=== PATIENT | female | born 1940 | race Caucasian/White ===

== ENCOUNTER 2025-09-24 00:56 | Emergency (ER) | payer MEDICARE, BC, SELFPAY ==
[2025-09-24 01:01] VITALS: BP 182/92
[2025-09-24 01:10] VITALS: BMI 26.8
--- NOTE | 2025-09-24 01:11 | ED.GENMED ---
History of Present Illness
General
Chief Complaint: Numbness
Source: patient
Exam Limitations: none
Time Seen by Provider: 09/24/25 01:01
Nursing documentation reviewed up to this point in time: agreed with except (Pain is in the left arm-triage note says right)
History of Present Illness
History of Present Illness:
84-year-old female with a past medical history as noted presents for evaluation of left arm pain. Patient reports symptoms have been constant all day and unremitting. She describes a dull aching in the left arm radiating down with more of a
burning sensation in the left hand. No clear triggering or relieving factors noted. She denies any trauma to the arm or hand. 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
not typical for her which prompted her to come to the ER this evening. Aside from arm pain she denies other symptoms including chest pain, shortness of breath, weakness or numbness in the arms or legs, neck pain or headache or any other acute
complaints.
Past History
Past History
ED Past Medical History: Arrthythmia, HTN, Valvular disease and Hypothyroidism
Social History
Tobacco: Non-smoker
Alcohol: None
Review of Systems
Review of Systems
All Other Systems: ROS reviewed and negative except as documented in HPI and ROS
Constitutional: Denies fever
Respiratory: Denies cough or trouble breathing
Cardiac: Denies chest pain
ABD/GI: Denies abdominal pain
: Denies flank pain
Musculoskeletal: Reports muscle pain (Left arm pain); Denies neck pain or back pain
Neurological: Denies dizzy, headache, weakness or numbness
Phy Exam
Physical Exam
Physical Exam:
General: Awake, alert, oriented x3 and very pleasant; no acute distress
Head: Normocephalic, atraumatic
Eyes: Conjunctiva normal, EOMI
Throat: Airway intact, handling secretions
Neck: Trachea midline, supple without meningismus, no cervical spine tender
Lungs: Clear to auscultation bilaterally, no wheezing, rales, rhonchi
Heart: Regular rate and rhythm, no murmurs, gallops, or rubs; pacemaker noted
Abd: Soft, non distended, nontender
Neuro: Cranial nerves grossly intact, speech fluid, motor and sensory gross intact
Skin: no rash in area of concern
Extremities: Patient does have left upper extremity edema +1, no edema in the right upper extremity or in the lower extremities; she has no point tenderness in the left arm, no rash, no erythema or warmth; she has a bounding left radial pulse and
the hand is warm and well-perfused
Scores
Heart Failure Risk
Heart Failure Risk Score: Not Applicable
Heart Score for Chest Pain Patients
STEMI patient?: Not applicable
Withdrawal Assessment of Alcohol
Withdrawal Assessment Completed?: Not applicable
Course
Orders/Labs/Results
Orders:
Orders
09/24/25 01:10
Electrocardiogram (*1) Urgent
Reason for Study: Chest Pain
EKG- Treatment ONCE
Interrogate Pacemaker- Treatment ONCE
Acetaminophen [Tylenol] 1,000 mg PO NOW STA
Gabapentin [Neurontin] 100 mg PO NOW STA
US Periph Venous UPPER Ext LT Urgent
Comment:
Reason For Exam: LUE pain and swelling
09/24/25 01:15
Complete Blood Count/With Diff Urgent
Comprehensive Metabolic Panel Urgent
Magnesium Urgent
Troponin I Urgent
09/24/25 02:33
Dexamethasone Sod Phosphate [Decadron] 10 mg IV NOW STA
09/24/25 02:40
Electrocardiogram (*1) Urgent
Reason for Study: Chest Pain
EKG- Treatment ONCE
09/24/25 03:01
Troponin I Urgent
09/24/25 04:00
Capsaicin [Zostrix-Hp 0.075% Cream] See Dose Instructions TOPICAL ONCE ONE
09/24/25 04:07
CT Angio Upper Ext W/Wo Iv Contrast [CT Upper Ext Angio W/wo Iv Con] Urgent
Comment:
Reason For Exam: severe left arm pain
09/24/25 04:08
Morphine Sulfate 4 mg IV NOW STA
Abnormal Lab Results
09/24/25
01:15
RBC 3.84 L 10^6/uL
(4.20-5.40)
Hgb 11.5 L g/dL
(12.0-16.0)
Hct 34.5 L %
(37.0-47.0)
Absolute Lymphs (auto) 0.9 L 10^3/uL
(1.2-3.4)
Absolute Monos (auto) 0.8 H 10^3/uL
(0.1-0.6)
Lymphocytes % 17.4 L %
(20.5-51.1)
Monocytes % 15.6 H %
(1.7-9.3)
BUN 19 H mg/dl
(7-17)
Glucose 100 H mg/dl
(70-99)
09/24/25 01:15
09/24/25 01:15
Vital Signs
Initial and Last Documented VS:
Initial Vital Signs
Temp Pulse Resp BP Pulse Ox
36.6 C 100 30 182/92 99
09/24/25 01:01 09/24/25 01:01 09/24/25 01:01 09/24/25 01:01 09/24/25 01:01
Last Documented Vital Signs
Temp Pulse Resp BP Pulse Ox
36.3 C 78 16 178/87 96
09/24/25 01:10 09/24/25 05:15 09/24/25 05:15 09/24/25 04:00 09/24/25 05:15
MDM/Problems Addressed
Differential Diagnosis Includes:
Radiculopathy/neuropathic pain, DVT, anginal equivalent; nothing to suggest claudication, early shingles
MDM/Problems Addressed:
84-year-old female presents with left arm pain�she has chronic swelling in the left upper extremity after DVT that was apparently stented; she is on Eliquis and compliant. Today has had pain in the arm all day which is unusual for her. She
describes an aching in the upper arm with more burning sensation in the distal arm/hand. No chest pain or any other acute complaints. Vitals and exam are as above. Plan to check basic labs, EKG and troponin. Will check ultrasound to rule out
DVT. She has a bounding pulse in the arm, extremity is warm and well-perfused�nothing to suggest claudication symptoms. Treat symptomatically, monitor closely, reassess after the above.
Initial labs reviewed: CBC shows marginal anemia, CMP no clinically significant abnormalities. Troponin negative x 1 will repeat for completeness. Ultrasound is negative for DVT in the arm. Continue to monitor here.
Repeat troponin negative. Patient continues to complain of severe pain in the arm. She was given medications here without improvement can trial some capsaicin cream as she describes what sound like neuropathic pain.
Patient continues to complain of severe pain�will check CT angio to rule out any arterial occlusion at this point.
CT angio shows no arterial occlusion or other acute pathology�at this point symptoms seem to be likely neuropathic pain either from pinched nerve, early shingles would be a consideration as well although no rash noted today. Her pain is a bit
better controlled here after receiving some morphine. Had a long discussion with the patient no clear indication for hospital admission pain is better controlled. I think it would be reasonable to trial a course of steroids and Neurontin and have
her follow-up with her primary provider and she feels very comfortable with this plan. All questions answered.
Acute Exacerbation and/or Progression of Chronic Illness:
Acutely hypertensive likely pain related�will treat pain but no emergent antihypertensives indicated at this point
Acute Exacerbation and/or Progression of Chronic Illness: HTN
*Radiology
Radiology exam reviewed: radiology read reviewed
*Pulse Oximetry
SaO2: 98
Oxygen Mode of Delivery: Room air
Patient hypoxic: no (98%)
*EKG
Interpreted by ED Provider?: Yes
Heart Rate: 73
Rate: normal
Rhythm: ventricular paced (Atrial sensed ventricular paced)
*Critical Care Note
Total Time (30-74mins, 75-104mins- exclusive of procedures): Not Applicable
Data Reviewed
Source: patient, records and ambulance crew
ED Attending Note
-
Portions of this chart may have been created with voice recognition software.� Occasional wrong word or��sound alike� substitutions may have occurred due to the inherent limitations of voice recognition software.
Discharge Plan
Departure
Patient Disposition: Home (Routine Discharge)
Date of Disposition: 09/24/25
Time of Disposition: 05:22
Patient with high blood pressure during this ER visit?: Yes
Discharge Problem:
Left arm pain
Instructions: Peripheral neuropathy
Prescriptions:
New
prednisone 10 mg Tablet
See Rx Instructions .ROUTE .COMPLEX Qty: 30 0RF
Rx Instructions:
Take By Mouth:
40 mg daily x3 days, 30 mg daily x3 days,
20 mg daily x3 days, 10 mg daily x3 days.
gabapentin 100 mg capsule
100 mg PO TID Qty: 30 0RF
No Action
Eliquis:
2.5 mg PO BID
Levothyroxine
100 mcg PO DAILY
aspirin 81 MG tablet,delayed release (DR/EC)
81 mg PO DAILY
carvedilol 3.125 MG tablet
3.125 mg PO BID
lisinopril 2.5 MG tablet
2.5 mg PO DAILY
furosemide 20 MG tablet
20 mg PO PRN PRN (Reason: .as directed )
Referrals:
Mariajose Hernandez DO [Family Provider, Family Practice] - Follow up in 5-7 days
Activity Restrictions/Additional Instructions:
Thank you for visiting the Emergency Department at [facility].
1. Please schedule a follow up appointment as directed. Call first thing tomorrow morning to make an appointment.
2. If indicated, please take your medications as instructed and indicated on discharge paperwork.
3. If any of your symptoms do not improve, or persist, or become more severe within 6-12 hours, please return to the emergency department for further care.
4. Please return to the emergency department if you develop a headache, neck pain/stiffness, fever greater than 100.4F, chest pain, shortness of breath, persistent nausea, vomiting, slurred speech, difficulty walking, numbness/tingling, weakness,
signs of infection or any other symptoms that are worrisome to you.
Please call [phone] if you have any questions.
Interventions
Interventions:
*Risk Screen - Suicide Last Done: 09/24/25 01:01
*General Assessment Last Done: 09/24/25 01:01
*Neglect/Abuse Screening Last Done: 09/24/25 01:01
*ED COVID-19 Vaccine History Last Done: 09/24/25 01:01
*ED Influenza Vaccine History Last Done: 09/24/25 01:01
[facility] Fall Risk Assessment Tool Last Done: 09/24/25 01:10
ED- Neurological Assessment Last Done: 09/24/25 01:01
Discharge Date and Time
Print Language: CITIZEN [place]
[2025-09-24] MEDS: NEURONTIN 100 MG PO (01:22)
[2025-09-24] MEDS: TYLENOL 1000 MG PO (01:22)
[2025-09-24 01:47] LABS: Hematocrit 34.5 % (37.0-47.0); Hemoglobin 11.5 g/dL (12.0-16.0); Mean Corp Hgb Conc. 33.3 g/dL (33.0-37.0); Mean Corpuscular Volume 89.8 fL (81.0-99.0); Nucleated Red Blood Cells % 0 %; Platelet Count 181 10^3/uL (130-400); Red Cell Dist. Width 13.2 % (11.5-14.5); Troponin I 0.028 ng/ml
[2025-09-24 01:48] LABS: ALT (SGPT) 15 U/L (0-35); AST (SGOT) 26 U/L (14-36); Albumin 4.4 g/dl (3.5-5.0); Alkaline Phosphatase 87 U/L (38-126); Blood Urea Nitrogen 19 mg/dl (7-17); Calcium 9.4 mg/dl (8.4-10.2); Carbon Dioxide 27 mmol/L (22-30); Chloride 107 mmol/L (98-107); Estimated Creatinine Clearance 51 ml/min; Glucose 100 mg/dl (70-99); Magnesium 2.1 mg/dl (1.6-2.3); Potassium 4.7 mmol/L (3.5-5.1); Sodium 139 mmol/L (135-145); Total Protein 7.4 g/dl (6.3-8.2); eGFR > 60.00
[2025-09-24] MEDS: DECADRON 10 MG IV (02:42)
[2025-09-24 03:00] VITALS: BP 174/81
[2025-09-24 03:34] LABS: Troponin I 0.031 ng/ml
[2025-09-24] MEDS: ZOSTRIX-HP 0.075% CREAM 1 APPLIC TOPICAL (03:42)
[2025-09-24 04:00] VITALS: BP 178/87
[2025-09-24] MEDS: MORPHINE SULFATE 4 MG IV (04:11)
== END 2025-09-24 05:51 | disposition home or self-care (01) ==
LOC: EMR 00:56
PROVIDERS: EMERGENCY PHYSICIAN Emergency Medicine; FAMILY PHYSICIAN Family Medicine
DX: M79.602 Pain in left arm (principal); R22.32 Localized swelling, mass and lump, left upper limb; E03.9 Hypothyroidism, unspecified; R20.0 Anesthesia of skin; I10 Essential (primary) hypertension; Z79.01 Long term (current) use of anticoagulants; Z95.0 Presence of cardiac pacemaker
CPT/HCPCS: 96374; 96375; 99284; 73206; 80053; 83735; 84484; 85025; 93005; 93971; Q9967